=== PATIENT | male | born 1980 | race Caucasian/White ===

== ENCOUNTER 2018-02-17 08:06 | Emergency (ER) | payer OTHER ==
--- NOTE | 2018-02-17 09:15 | EDPHY ---
H & P Smoking Status: Never smoked Time Seen by Provider: 02/17/18 08:55 HPI/ROS: CHIEF COMPLAINT: "I still have pinkeye and I need to see at optical mechanic apprentice" HISTORY OF PRESENT ILLNESS: 37-year-old immunocompetent male complaining of 1 week of conjunctivitis like symptoms. He used tell medicine provider consultation so 6 days ago was prescribed polymyxin drops. Symptoms continued in 2 days ago he was seen by his PCP Dr. Lebron Puente and was prescribed Ocuflox. He notes continued symptoms, tried to see an optical mechanic apprentice today was unable to do so before the weekend (today is Tuesday). Therefore comes to the ER. He denies: Headache, pain with extraocular movements, fever, chills, exposure to high speed projectiles PRIMARY CARE PROVIDER: REVIEW OF SYSTEMS: A ten point review of systems was performed and is negative with the exception of the items mentioned in the HPI PHYSICAL EXAM (Prior to examination, patient consented to physical exam, hands were washed and my usual and customary physical exam procedures followed) 1) GENERAL: Well-developed, well-nourished, alert and oriented. Appears nontoxic 2) HEAD: Normocephalic 3) ENT: sclera anicteric 4) LUNGS: Breathing comfortably. [5) OCULAR EXAM: Visual Acuity: OS 20/50 right eye 20/50 both eyes 20/40 Pupils:equal round and reactive to light EOMI Lids: no edema or swelling, upper and lower lids were everted and no foreign bodies were visualized, no areas of increased fluorescein uptake. Skin: no proptosis, no periorbital erythema or swelling, no vesicles, no pain with extraocular movements. Conjunctivae: Bilateral conjunctival injection with discharge. Negative Brannon test. Cornea: exam with fluorescein shows no areas of increased uptake. Right eye tonometric pressure 10, left eye 11. No dendritic appearance. No facial vesicles Anterior chamber:normal, no hyphema or hypopyon (Mallory,D Phoebe) Constitutional: Initial Vital Signs Temperature (C) 36.5 C 02/17/18 08:10 Heart Rate 60 02/17/18 08:10 Respiratory Rate 16 02/17/18 08:10 Blood Pressure 133/77 H 02/17/18 08:10 O2 Sat (%) 96 02/17/18 08:10 O2 Delivery Mode Room Air Allergies/Adverse Reactions: No Known Allergies Allergy (Unverified 02/17/18 08:09) Home Medications: Medication Instructions Recorded Ciprofloxacin 0.3% [Ciloxan Opth 02/17/18 Drops] MDM/Departure - MDM ED Course/Re-evaluation: 9:21 a.m.: Phone consultation with Dr. Zoraida Green who will see the patient at 3:30 p.m. this afternoon at her [place] office. I saw this patient independently based on established practice protocols. Care of patient under supervision of secondary supervising physician Dr Lebron López . (Mallory,Heather Sandhu ) I did not see this patient while he was in the emergency department. However his care was discussed with the PA while the patient was in the department. I agree with treatment plan and management (Lebron López) - Depart Disposition: Home, Routine, Self-Care Clinical Impression: Conjunctivitis Qualifiers: Conjunctivitis type: acute Acute conjunctivitis type: bacterial Laterality: bilateral Qualified Code(s): H10.33 - Unspecified acute conjunctivitis, bilateral Condition: Good Instructions: Conjunctivitis (ED) Additional Instructions: Keep your appointment today [address] Zoraida Green, optical mechanic apprentice. Keep using your eyedrops as directed. Referrals: Zoraida Green MD [Non Staff Provider (MD)] - 02/17/18 3:30 pm (Dr. Zoraida Green will be expecting you at her [place] office at 3:30 p.m., address [address] [place] [address] [id number], [place] [address])
[2018-02-17 10:15] VITALS: BP 125/69
== END 2018-02-17 10:15 | disposition home or self-care (01) ==
DX: H10.33 Unspecified acute conjunctivitis, bilateral (principal)